=== PATIENT | male | born 1925 | race African-American/Black ===

== ENCOUNTER 2016-11-05 08:24 | Emergency (ER) | payer MEDICARE, OTHER ==
[~2016-11-05] VITALS: Ht 167.6 cm; Wt 136.1 kg
[2016-11-05] MEDS ORDERED: IPRATRPIUM/ALBUTEROL 0.5/2.5MG 3 ML NEBU. NEB ONE ×2 (09:00→09:30)
--- NOTE | 2016-11-05 09:07 | PHYS DOC ---
Past Medical History Past Medical History: Asthma, CHF, Constipation, Hypertension Past Surgical History: No Surgical History Alcohol Use: None Drug Use: None Adult General Chief Complaint Chief Complaint: SHORT OF AIR HPI HPI 89-year-old male presenting to the emergency department today with worsening shortness of breath and wheezing. This been present for about 4-5 weeks worsening progressively. It is worse with exertion and improved with rest. He denies any pain but does have associated leg swelling. He has a history of CHF and asthma. Review of systems is negative for fevers chills cough abdominal pain nausea vomiting or diaphoresis. He denies any chest pain. All other review of systems is negative unless otherwise noted in history of present illness. ED course: 89-year-old male presenting to the emergency department today with worsening shortness of breath. Triage vital signs show the patient to be afebrile with normal heart rate. Mildly tachypneic and audibly wheezing initially. Respiratory therapy administered a DuoNeb in the emergency department. Patient was saturating well on room air initially. Pertinent physical exam findings show wheezing diffusely with prolonged respiratory phase. Otherwise the patient does have 2+ edema bilaterally and currently has compression stockings on. Chest x-ray and blood work obtained along with EKG. workup unremarkable. On reexamination the patient's wheezing has improved significantly. IV Solu-Medrol given in the emergency department. Urinalysis suggestive of urinary tract infection. Oral Bactrim given. The patient is discharged home with oral prednisone to follow-up with his doctor in 3-4 days. The patient was then discharged home in stable condition to follow up with their primary care physician over the next 2-3 days. They were to return if their symptoms worsened or if they were concerned for any reason. Cuub-vd-[id number] discharge instructions and return precautions were given. Patient's questions were answered to their satisfaction. Patient is comfortable plan. Review of Systems Review of Systems SEE ABOVE. Current Medications Current Medications Current Medications Medications (Trade) Dose Ordered Sig/Nyla Start Time Stop Time Status Last Admin Dose Admin Albuterol/ Ipratropium (Duoneb) 3 ml 1X ONCE 11/05/16 09:30 11/05/16 09:39 DC 11/05/16 09:33 3 ML Methylprednisolone Sodium Succinate (SOLU-Medrol 125MG VIAL) 125 mg 1X ONCE 11/05/16 09:15 11/05/16 09:16 DC 11/05/16 09:24 125 MG Allergies Allergies Allergies Coded Allergies Type Severity Reaction Last Updated Verified No Known Drug Allergies 11/05/16 No Physical Exam Physical Exam SEE ABOVE Constitutional: Well developed, well nourished, no acute distress, non-toxic appearance. HENT: Normocephalic, atraumatic, bilateral external ears normal, oropharynx moist, no oral exudates, nose normal. [] Eyes: PERRLA, EOMI, conjunctiva normal, no discharge. [] Neck: Normal range of motion, no tenderness, supple, no stridor. Cardiovascular:Heart rate regular rhythm, no murmur [] Lungs & Thorax: SEE ABOVE Abdomen: Bowel sounds normal, soft, no tenderness, no masses, no pulsatile masses. [] Skin: Warm, dry, no erythema, no rash. [] Back: No tenderness, no CVA tenderness. Extremities: No tenderness, no cyanosis, no clubbing, ROM intact,SEE ABOVE Neurologic: Alert and oriented X 3, normal motor function, normal sensory function, no focal deficits noted. Psychologic: Affect normal, judgement normal, mood normal. [] Current Patient Data Vital Signs Vital Signs Date Time Temp Pulse Resp B/P (MAP) Pulse Ox O2 Delivery O2 Flow Rate FiO2 11/05/16 10:49 68 24 203/85 (124) 97 Room Air 11/05/16 08:41 98.2 98.2 Lab Values Laboratory Tests Test 11/05/16 09:10 11/05/16 10:30 White Blood Count 14.0 x10^3/uL (4.0-11.0) H Red Blood Count 4.14 x10^6/uL (4.30-5.70) L Hemoglobin 11.8 g/dL (13.0-17.5) L Hematocrit 35.5 % (39.0-53.0) L Mean Corpuscular Volume 86 fL (79-100) Mean Corpuscular Hemoglobin 28 pg (25-35) Mean Corpuscular Hemoglobin Concent 33 g/dL (31-37) Red Cell Distribution Width 16.3 % (11.5-14.5) H Platelet Count 284 x10^3/uL (140-400) Neutrophils (%) (Auto) 66 % (31-73) Lymphocytes (%) (Auto) 6 % (24-48) L Monocytes (%) (Auto) 4 % (0-9) Eosinophils (%) (Auto) 24 % (0-3) H Basophils (%) (Auto) 1 % (0-3) Neutrophils # (Auto) 9.2 x10^3uL (1.8-7.7) H Lymphocytes # (Auto) 0.8 x10^3/uL (1.0-4.8) L Monocytes # (Auto) 0.5 x10^3/uL (0.0-1.1) Eosinophils # (Auto) 3.4 x10^3/uL (0.0-0.7) H Basophils # (Auto) 0.1 x10^3/uL (0.0-0.2) Segmented Neutrophils % 59 % (35-66) Lymphocytes % 5 % (24-48) L Monocytes % 5 % (0-10) Eosinophils % 31 % (0-5) H Platelet Estimate Adequate (ADEQUATE) Sodium Level 138 mmol/L (136-145) Potassium Level 3.8 mmol/L (3.5-5.1) Chloride Level 100 mmol/L (98-107) Carbon Dioxide Level 32 mmol/L (21-32) Anion Gap 6 (6-14) Blood Urea Nitrogen 19 mg/dL (8-26) Creatinine 1.9 mg/dL (0.7-1.3) H Estimated GFR (Cockcroft-Gault) 40.7 Glucose Level 217 mg/dL (70-99) H Lactic Acid Level 1.3 mmol/L (0.4-2.0) Calcium Level 9.7 mg/dL (8.5-10.1) Total Bilirubin 0.6 mg/dL (0.2-1.0) Direct Bilirubin 0.1 mg/dL (0.0-0.2) Aspartate Amino Transferase (AST) 16 U/L (15-37) Alanine Aminotransferase (ALT) 17 U/L (16-63) Alkaline Phosphatase 107 U/L (46-116) Troponin I Quantitative < 0.017 ng/mL (0.000-0.055) BG-Vgf-Y-Type Natriuretic Peptide 304 pg/mL (0-449) Total Protein 7.9 g/dL (6.4-8.2) Albumin 3.5 g/dL (3.4-5.0) Lipase 73 U/L (73-393) Urine Collection Type Unknown Urine Color Yellow Urine Clarity Cloudy Urine pH 5.5 Urine Specific [place] 1.015 Urine Protein 30 mg/dL (NEG-TRACE) Urine Glucose (UA) Negative mg/dL (NEG) Urine Ketones (Stick) Negative mg/dL (NEG) Urine Blood Trace (NEG) Urine Nitrite Positive (NEG) Urine Bilirubin Negative (NEG) Urine Urobilinogen Dipstick 0.2 mg/dL (0.2 mg/dL) Urine Leukocyte Esterase Large (NEG) Urine RBC 0 /HPF (0-2) Urine WBC >40 /HPF (0-4) Urine Bacteria Many /HPF (0-FEW) Laboratory Tests 11/05/16 09:10 Laboratory Tests 11/05/16 09:10 EKG EKG [] Radiology/Procedures Radiology/Procedures [] Course & Med Decision Making Course & Med Decision Making Pertinent Labs and Imaging studies reviewed. (See chart for details) [] Dragon Disclaimer Dragon Disclaimer This electronic medical record was generated, in whole or in part, using a voice recognition dictation system. Departure Departure Impression: Primary Impression: SOB (shortness of breath) Additional Impressions: Asthma exacerbation COPD exacerbation Urinary tract infection Disposition: HOME, SELF-CARE Condition: STABLE Referrals: RUBÉN ESPANA MD Patient Instructions: Shortness of Breath, Fzig-of-Imzo Additional Instructions: Thank you for allowing us to participate in your care today. Followup with your primary care physician in 3 days if your symptoms do not improve. Call your Primary Doctor tomorrow and inform them of your visit today. If you do not have a primary care provider you can ask for a list of our primary care providers. Return to the emergency department you have any new or concerning findings. This should be evaluated by the primary care physician and any necessary consulting services for continued management within a few days after discharge. Return to emergency room if you have any new or concerning symptoms including but not limited to fever, chills, nausea, vomiting, intractable pain, any new rashes, chest pain, shortness of air, uncontrolled bleeding, difficulty breathing, and/or vision loss. Scripts Sulfamethoxazole/Trimethoprim (BACTRIM DS TABLET) 1 Each Tablet 1 TAB PO BID, #14 TAB Prov: NICHOLAS HUGGINS MD 11/05/16 Prednisone (PREDNISONE) 50 Mg Tablet 50 MG PO DAILY, #4 TAB Prov: NICHOLAS HUGGINS MD 11/05/16 Problem Qualifiers NICHOLAS HUGGINS MD Nov 05, 2016 09:07
[2016-11-05] MEDS ORDERED: methylPREDNISolone SOD SUCC PF 125 MG/2 ML VIAL. IV ONE (09:15)
[2016-11-05 09:22] LABS: BASO # 0.1 x10^3/uL (0.0-0.2); BASO % 1 % (0-3); EOS % 24 % (0-3); HEMATOCRIT 35.5 % (39.0-53.0); HEMOGLOBIN 11.8 g/dL (13.0-17.5); LYMPH # 0.8 x10^3/uL (1.0-4.8); LYMPH % 6 % (24-48); MEAN CORPUSCULAR HEMOGLOBIN 28 pg (25-35); MEAN CORPUSCULAR HGB CONC 33 g/dL (31-37); MEAN CORPUSCULAR VOLUME 86 fL (79-100); MONO % 4 % (0-9); NEUT % 66 % (31-73); PLATELET COUNT 284 x10^3/uL (140-400); RED BLOOD COUNT 4.14 x10^6/uL (4.30-5.70); RED CELL DISTRIBUTION WIDTH 16.3 % (11.5-14.5)
--- NOTE | 2016-11-05 09:24 | RAD ---
Indication shortness of air. A single view of the chest was obtained. No prior imaging of the chest is available. The heart and pulmonary vessels appear normal. The lungs are clear. There is no significant pleural fluid and there is no pneumothorax. IMPRESSION: No acute or focal process is seen in the chest
[2016-11-05 09:33] LABS: CALCIUM 9.7 mg/dL (8.5-10.1); CREATININE 1.9 mg/dL (0.7-1.3); GFR 40.7; POTASSIUM 3.8 mmol/L (3.5-5.1)
[2016-11-05 09:40] LABS: ALBUMIN 3.5 g/dL (3.4-5.0); DIRECT BILIRUBIN 0.1 mg/dL (0.0-0.2); TOTAL BILIRUBIN 0.6 mg/dL (0.2-1.0); TOTAL PROTEIN 7.9 g/dL (6.4-8.2)
[2016-11-05] MEDS ORDERED: PRED50TA PO (10:52)
[2016-11-05 10:59] LABS: BILIRUBIN,URINE NEGATIVE (NEG); GLUCOSE,URINE NEGATIVE (NEG); NITRITE,URINE POSITIVE (NEG); PH,URINE 5.5; PROTEIN,URINE 30 mg/dL (NEG-TRACE); UROBILINOGEN,URINE 0.2 mg/dL (0.2 mg/dL)
[2016-11-05 11:12] LABS: % EOS 31 % (0-5)
[2016-11-05 11:13] LABS: PLT ESTIMATE ADEQUATE (ADEQUATE)
[2016-11-05 11:20] LABS: BACTERIA,URINE MANY /HPF (0-FEW); RBC,URINE 0 /HPF (0-2); WBC,URINE >40 /HPF (0-4)
[2016-11-05] MEDS ORDERED: SULF1TAB24 PO (11:30)
[2016-11-05 11:45] VITALS: BP 191/81
--- NOTE | 2016-11-06 14:55 | EKG ---
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
== END 2016-11-05 11:58 | disposition home or self-care (01) ==
LOC: ER 08:24
DX: J44.1 Chronic obstructive pulmonary disease with (acute) exacerbation (principal); J45.901 Unspecified asthma with (acute) exacerbation; N39.0 Urinary tract infection, site not specified; I11.0 Hypertensive heart disease with heart failure; I50.9 Heart failure, unspecified
CPT/HCPCS: 36415; 71010; 80048; 80076; 81001; 83605; 83690; 83880; 84484; 85007; 85025; 87086; 93005; 94250; 94640; 96374; 99285; J2930; J7620